=== PATIENT | female | born 1955 | race Caucasian/White ===

== ENCOUNTER 2019-09-08 13:12 | Emergency (ER) | payer SELFPAY ==
[~2019-09-08] VITALS: Ht 154.9 cm; Wt 69.4 kg
[2019-09-08 13:39] VITALS: BP_SYST 130
--- NOTE | 2019-09-08 13:44 | NUR ---
Patient triaged and placed in waiting room. VSS and patient appears in no acute distress at this time. Awaiting available bed, and MD notified of need for MSE.
[2019-09-08 14:42] VITALS: BP_SYST 130
== END 2019-09-08 14:00 | disposition left against medical advice (07) ==
LOC: SED 13:12
DX: R05 Cough (principal); Z53.21 Procedure and treatment not carried out due to patient leaving prior to being seen by health care provider